=== PATIENT | male | born 1970 | race Caucasian/White ===

== ENCOUNTER → 2017-10-21 | Outpatient (CLI) | payer OTHER ==
[~2017-10-21] MED LIST: IOPAMIDOL (ISOVUE-300) 100 ML BTL ONE
== END ==
LOC: FIMAGING 16:30
PROVIDERS: ATTEND Ophthalmology Pediatric Ophthalmology and Strabismus Specialist
DX: H05.011 Cellulitis of right orbit (principal); L03.211 Cellulitis of face; K11.21 Acute sialoadenitis; K11.23 Chronic sialoadenitis
CPT/HCPCS: Q9967